=== PATIENT | female | born 1950 | race Caucasian/White ===

== ENCOUNTER 2018-02-24 19:21 | Emergency (ER) | payer OTHER ==
[~2018-02-24] VITALS: Ht 157.5 cm; Wt 83.5 kg
[~2018-02-24 19:21] MED LIST: ATORVASTATIN CA20 MG PO; DIOVAN80 MG PO
[2018-02-24 20:42] LABS: ABSOLUTE BASOPHIL COUNT 0.1 /CUMM (0.0-0.2); ABSOLUTE EOSINOPHIL COUNT 0.4 /CUMM (0.0-0.7); ABSOLUTE GRANULOCYTE CT 8.7 /CUMM (1.4-6.5); ABSOLUTE LYMPH COUNT 2.6 /CUMM (1.2-3.4); ABSOLUTE MONOCYTE COUNT 0.7 /CUMM (0.10-0.60); BASOPHIL % 0.4 % (0.0-2.0); EOSINOPHIL % 2.9 % (0-5); GRANULOCYTE % 69.9 % (42.2-75.2); HEMATOCRIT 46.1 % (37-47); MEAN CORPUSCULAR HGB 31.8 PG (27.0-31.0); MEAN CORPUSCULAR VOLUME 93.5 FL (81.0-99.0); MEAN PLATELET VOLUME 7.5 FL (7.4-10.4); PLATELET COUNT 332 /CUMM (130-400); RBC DISTRIBUTION WIDTH 13.6 % (11.5-14.5); RED BLOOD CELL CT 4.93 /CUMM (4.20-5.40); WHITE BLOOD CELL COUNT 12.4 /CUMM (4.8-10.8)
--- NOTE | 2018-02-24 20:57 | ED GENERAL ADULT ---
History of Present Illness General Chief Complaint: General Adult Stated Complaint: BIBA WITH ANXIETY AND HIGH BLOOD PRESSURE Source: patient Exam Limitations: no limitations Vital Signs & Intake/Output Vital Signs & Intake/Output Vital Signs Date Time Temp Pulse Resp B/P B/P Pulse O2 O2 Flow FiO2 Mean Ox Delivery Rate 02/24 2233 97.6 64 16 146/78 96 Room Air 02/24 2143 Room Air ED Intake and Output 02/25 0000 02/24 1200 Intake Total 300 Output Total Balance 300 Intake, Oral 300 Patient 184 lb Weight Weight Reported by Patient Measurement Method Allergies Uncoded Allergies: MOLD AND POLLEN (08/07/15) Reconcile Medications Atorvastatin Calcium (Lipitor) 20 MG TAB 1 TAB PO EOD CHOLESTEROL (Reported) Valsartan (Diovan) 80 MG TAB 1 TAB PO DAILY BP (Reported) Triage Note: PT FROM HOME C/O ANXIETY ATTACK 30 MINS PRIOR TO ARRIVAL. PT STATES THAT WAS HAVING DINNER AND ALL OF THE SUDDENT FELT AN ONSET OF NAUSEA, DIZZINESS AND A "FLUSHED FEELING" PER PT. PT HAS HX OF ANXIETY ATTACKS. BP IN TRIAGE 159/85. NO OTHER SYMPTOMS NOTED. PT STATES CURRENTLY NO CHEST PRESSURE BUT EARLIER AT THE DINNER TABLE. Triage Nurses Notes Reviewed? yes Onset: Abrupt Duration: hour(s): (2), better, gone now, intermittent Timing: single episode today Injury Environment: home Severity: mild, moderate Severity Numbers: 3 No Modifying Factors: none LMP (ages 10-50): unknown : No Patient currently breastfeeds: No HPI: 67 year old female history of hypertension and hyperlipidemia presents for evaluation of an episode of dizziness lightheadedness nausea flushed feeling and chest pressure. Patient reports she was eating dinner with very spicy food when she suddenly felt the nausea and dizziness flushed and chest pressure. No shortness of breath. Symptoms lasted about 15 minutes and resolved. She never had this before. There was no vomiting slurred speech and shortness of breath hemoptysis lower extremity edema. No chest pain on exertion. She's never had a heart attack. Currently she is feeling well. (Lemuel Cantor) Past History Travel History Traveled to [place] past 21 day No Medical History Any Pertinent Medical History? see below for history Cardiovascular: hypertension, hyperlipidemia Psychiatric: anxiety Surgical History Surgical History: non-contributory Psychosocial History What is your primary language Italian Tobacco Use: Current Daily Use Daily Tobacco Use Amount/Type: => 5 Cigarettes daily ETOH Use: denies use Illicit Drug Use: denies illicit drug use Family History Hx Contributory? No (Lemuel Cantor) Review of Systems Review of Systems Constitutional: Reports: no symptoms. EENTM: Reports: no symptoms. Respiratory: Reports: no symptoms. Cardiovascular: Reports: see HPI, chest pain. GI: Reports: no symptoms. Genitourinary: Reports: no symptoms. Musculoskeletal: Reports: no symptoms. Skin: Reports: no symptoms. Neurological/Psychological: Reports: see HPI (dizzy). Hematologic/Endocrine: Reports: no symptoms. Immunologic/Allergic: Reports: no symptoms. All Other Systems: Reviewed and Negative (Lemuel Cantor) Physical Exam Physical Exam General Appearance: well developed/nourished, no apparent distress, alert, awake Head: atraumatic, normal appearance Eyes: Bilateral: normal appearance, PERRL, EOMI. Ears, Nose, Throat: normal pharynx, normal ENT inspection, hearing grossly normal Neck: normal inspection, supple, full range of motion Respiratory: normal breath sounds, chest non-tender, no respiratory distress, lungs clear Cardiovascular: regular rate/rhythm, normal peripheral pulses Peripheral Pulses: 2+ radial (R), 2+ radial (L) Gastrointestinal: normal bowel sounds, soft, non-tender, no organomegaly Back: normal inspection, normal range of motion, no vertebral tenderness Extremities: normal inspection, normal range of motion, no edema Neurologic/Psych: no motor/sensory deficits, awake, alert, oriented x 3, normal gait, normal mood/affect Skin: intact, normal color, warm/dry Lymphatic: no anterior cervical chace Core Measures ACS in differential dx? Yes CVA/TIA Diagnosis: No Sepsis Present: No Sepsis Focused Exam Completed? No (Lemuel Cantor) Progress Differential Diagnoses I considered the following diagnoses in my evaluation of the patient: [Gastritis , GERD, acute coronary syndrome, aortic dissection, PE, pneumonia, arrhythmia, electrolyte abnormality, CVA] Plan of Care: Orders Procedure Date/time Status TROPONIN LEVEL 02/24 2330 Complete EKG 02/24 2330 Active Add-on Test (ER Only) 02/24 2309 Active Add-on Test (ER Only) 02/24 2107 Active D-DIMER 02/24 2033 Complete B-TYPE NATRIURETIC PEP (BNP) 02/24 2033 Complete Laboratory Tests 02/24/18 2343: Troponin I < 0.01 02/24/182032: Anion Gap 9, Estimated GFR > 60, BUN/Creatinine Ratio 30.0 H, Glucose 112 H, Calcium 9.3, Total Bilirubin 0.4, AST 17, ALT 31, Alkaline Phosphatase 71, Troponin I < 0.01, [id number] Pept 108, Total Protein 6.8, Albumin 4.1, Globulin 2.7, Albumin/Globulin Ratio 1.5, D-Dimer High Sensitivty < 200, CBC w Diff NO MAN DIFF REQ, RBC 4.93, MCV 93.5, MCH 31.8 H, MCHC 34.0, RDW 13.6, MPV 7.5, Gran % 69.9, Lymphocytes % 21.4, Monocytes % 5.4, Eosinophils % 2.9, Basophils % 0.4, Absolute Granulocytes 8.7 H, Absolute Lymphocytes 2.6, Absolute Monocytes 0.7 H, Absolute Eosinophils 0.4, Absolute Basophils 0.1 Patient is here for evaluation after an episode of dizziness flushed feeling nausea and chest pressure. This lasted for about 15 minutes that occurred when she was eating dinner. Currently she is feels well. She never had coughing or shortness of breath. Initial EKG is unremarkable labs chest x-ray d-dimer ordered. Lab work is unremarkable chest x-ray shows mild prominence of interstitial markings. There is no crackles on exam she is not hypoxic she has no cough or shortness of breath proBNP is within normal limits. Repeat EKG and troponin are negative and unchanged patient remains asymptomatic and feels well. She'll be discharged home with instructions to follow-up with her primary care doctor. Discussed return precautions in detail patient agrees the plan case discussed with Dr. Miller he agrees. Diagnostic Imaging: Viewed by Me: Radiology Read. Discussed w/RAD: Radiology Read. CXR Impression: PATIENT: GABO BUI PRESENT AGE: 67 PATIENT ACCOUNT NO: [id number] : 51 LOCATION: [facility] ORDERING PHYSICIAN: Lemuel VALENCIA SERVICE DATE: 02/24/18 EXAM TYPE: RAD - XRY-CHEST XRAY, TWO VIEWS EXAMINATION: XR CHEST CLINICAL INFORMATION: Chest pain COMPARISON: None TECHNIQUE: 2 views of the chest were obtained. FINDINGS: Heart size is normal. Mediastinal contours are normal. There is mild prominence of the interstitial markings. Lungs are clear without consolidation, effusion or pneumothorax. Visualized osseous structures appear intact. IMPRESSION: Mild prominence of the interstitial markings. This may represent the baseline appearance of the patient's chest radiograph versus possible edema versus viral infection. DICTATED BY: Sienna Pal MD DATE/TIME DICTATED:02/24/182252 DATA GOVERNANCE CONSULTANT:ALKA DATE/TIME TRANSCRIBED:02/24/182252 CONFIDENTIAL, DO NOT COPY WITHOUT APPROPRIATE AUTHORIZATION. Initial ED EKG: normal sinus rhythm, LEFT ATRIAL ABN Repeat EKG: unchanged (Lemuel Cantor) Differential Diagnoses I considered the following diagnoses in my evaluation of the patient: (Johnson Miller DO) Departure Departure Disposition: HOME OR SELF CARE Condition: Stable Clinical Impression Primary Impression: Chest pain Qualifiers: Chest pain type: unspecified Qualified Code: R07.9 - Chest pain, unspecified Referrals: Amari Santos MD (PCP/Family) Additional Instructions: Follow-up with her primary care doctor to review all result of today's visit. Monitor your symptoms return with any concerns. Departure Forms: Customer Survey General Discharge Information (Lemuel Cantor) Departure Comments I saw and personally examined the patient and I agree with the PAs evaluation. 67-year-old female who had retrosternal chest pain that was burning in nature after eating spicy food. EKGs and serial troponins are unremarkable. D-dimer is negative. She had improved relief with GI cocktail. Chest x-ray reveals mild interstitial prominence only. The patient was instructed to follow-up with her doctor this week. (Johnson Miller DO) Critical Care Note Critical Care Note Critical Care Time: non-applicable (Lemuel Cantor)
[2018-02-24 22:33] VITALS: BP 146/78
--- NOTE | 2018-02-24 22:58 | RADIOLOGY REPORT ---
EXAMINATION: XR CHEST CLINICAL INFORMATION: Chest pain COMPARISON: None TECHNIQUE: 2 views of the chest were obtained. FINDINGS: Heart size is normal. Mediastinal contours are normal. There is mild prominence of the interstitial markings. Lungs are clear without consolidation, effusion or pneumothorax. Visualized osseous structures appear intact. IMPRESSION: Mild prominence of the interstitial markings. This may represent the baseline appearance of the patient's chest radiograph versus possible edema versus viral infection.
== END 2018-02-25 01:04 ==
LOC: ERH 19:21
PROVIDERS: Physician Assistant Medical
DX: R07.89 Other chest pain (principal)
CPT/HCPCS: 71046; 93005; 93010